=== PATIENT | female | born 1940 | race Caucasian/White ===

== ENCOUNTER 2024-06-10 11:38 | Inpatient (IN) | payer MEDICARE ==
[~2024-06-10] VITALS: Ht 167.6 cm; Wt 147.0 kg
[2024-06-10] MEDS ORDERED: ONDANSETRON HCL/PF 4 MG/2 ML VIAL ONE (11:45)
[2024-06-10] MEDS ORDERED: MORPHINE SULFATE INJ 4 MG/ML DISP.SYRIN ONE (11:45)
[2024-06-10] MEDS: ONDANSETRON 4 MG TAB.RAPDIS PO ONE (11:48)
[2024-06-10] MEDS: MORPHINE SULFATE INJ 2 MG/ML DISP.SYRIN IM ONE (11:50)
[2024-06-10] MEDS ORDERED: ASPI-1169 PO (12:08)
[2024-06-10] MEDS ORDERED: VALS320T2 PO (12:08)
[2024-06-10] MEDS ORDERED: ESCI20TA PO (12:08)
[2024-06-10] MEDS ORDERED: LEVO137T24 PO (12:08)
[2024-06-10] MEDS ORDERED: NAPR-1009 PO (12:08)
[2024-06-10] MEDS ORDERED: FURO-145 PO (12:08)
[2024-06-10] MEDS ORDERED: SIMV40TA2 PO (12:08)
[2024-06-10] MEDS ORDERED: OXYB10TA30 PO (12:08)
[2024-06-10] MEDS ORDERED: LOSA100T31 PO (12:08)
[2024-06-10 13:17] LABS: CALCIUM, SERUM 8.9 mg/dL (8.5-10.1); CARBON DIOXIDE 28 mmol/L (21-32); CHLORIDE 94 mmol/L (98-107); CREATININE 0.8 mg/dL (0.6-1.3); GLUCOSE 128 mg/dL (74-106); POTASSIUM 4.7 mmol/L (3.5-5.1); SODIUM SERUM 128 mmol/L (136-145); UREA NITROGEN, BLOOD 9 mg/dL (7-18)
[2024-06-10 13:22] LABS: INR 1.04 (0.91-1.10); PARTIAL THROMBOPLASTIN TIME 28.6 SEC (24.3-34.3)
[2024-06-10 13:46] LABS: BASOPHILS # (AUTO) 0.1 K/uL (0.0-0.2); BASOPHILS % (AUTO) 0.6 % (0.0-2.0); EOSINOPHILS # (AUTO) 0.1 K/uL (0.0-0.7); EOSINOPHILS % (AUTO) 0.5 % (0.0-6.0); HEMATOCRIT 44 % (33-45); HEMOGLOBIN 14.7 g/dL (11.5-14.8); LYMPHOCYTES # (AUTO) 1.1 K/uL (0.8-4.8); LYMPHOCYTES % (AUTO) 9.9 % (20.0-44.0); MEAN CORPUSCULAR HEMOGLOBIN 33 PG (26.0-33.0); MEAN CORPUSCULAR HGB CONC 34 g/dl (31.0-36.0); MEAN CORPUSCULAR VOLUME 97 fL (82-100); MONOCYTES # (AUTO) 1.4 K/uL (0.1-1.30); MONOCYTES % (AUTO) 12.4 % (2.0-12.0); NEUTROPHILS # (AUTO) 8.4 K/uL (1.8-8.9); NEUTROPHILS % (AUTO) 76.6 % (43.0-81.0); PLATELET COUNT (AUTO) 272 K/uL (150-450); RED BLOOD CELL COUNT(AUTO) 4.48 MIL/uL (4.0-5.2); RED CELL DISTRIBUTION WIDTH 13.7 % (11.5-15.0)
[2024-06-10] MEDS ORDERED: ONDANSETRON HCL/PF 4 MG/2 ML VIAL IVP PRN (14:00)
[2024-06-10] MEDS ORDERED: MAG HYDROX/AL HYDROX/SIMETH 30 ML UDC PO PRN (14:00)
[2024-06-10] MEDS ORDERED: Z GUARD REMEDY 4 OZ OINT TP PRN (14:00)
[2024-06-10] MEDS ORDERED: MAGNESIUM HYDROXIDE 30 ML UDC PO PRN (14:00)
[2024-06-10] MEDS ORDERED: ACETAMINOPHEN 325 MG TABLET PO PRN (14:00)
[2024-06-10 16:00] VITALS: BP 120/56; TEMP 98.2; O2SAT 95
[2024-06-10] MEDS: IV NS 0.9% 1,000 ML IV PRN (16:04)
[2024-06-10] MEDS: HYDROCODONE/APAP 10/325MG TABLET PO PRN (16:23)
[2024-06-10 19:09] VITALS: BP 120/56; TEMP 98.2; O2SAT 95
[2024-06-10 20:00] VITALS: BP 100/65; TEMP 97.9; O2SAT 96
[2024-06-10 20:28] VITALS: O2SAT 96
[2024-06-10] MEDS: ENOXAPARIN SODIUM 40 MG/0.4 ML DISP.SYRIN SQ SCH (20:37)
[2024-06-11] VITALS: BP 101/46; TEMP 98.1; O2SAT 95
[2024-06-11 04:00] VITALS: BP 104/50; TEMP 98.2; O2SAT 97
[2024-06-11 06:33] LABS: CALCIUM, SERUM 8.6 mg/dL (8.5-10.1); CREATININE 1.4 mg/dL (0.6-1.3); MAGNESIUM 1.9 mg/dL (1.8-2.4); PHOSPHORUS 3.4 mg/dL (2.5-4.9); POTASSIUM 4.7 mmol/L (3.5-5.1)
[2024-06-11 06:50] LABS: BASOPHILS # (AUTO) 0.1 K/uL (0.0-0.2); BASOPHILS % (AUTO) 0.8 % (0.0-2.0); EOSINOPHILS # (AUTO) 0.1 K/uL (0.0-0.7); EOSINOPHILS % (AUTO) 1.2 % (0.0-6.0); HEMATOCRIT 39 % (33-45); HEMOGLOBIN 13.2 g/dL (11.5-14.8); LYMPHOCYTES # (AUTO) 1.5 K/uL (0.8-4.8); LYMPHOCYTES % (AUTO) 19.8 % (20.0-44.0); MEAN CORPUSCULAR HEMOGLOBIN 33 PG (26.0-33.0); MEAN CORPUSCULAR HGB CONC 34 g/dl (31.0-36.0); MEAN CORPUSCULAR VOLUME 98 fL (82-100); MONOCYTES # (AUTO) 0.9 K/uL (0.1-1.30); MONOCYTES % (AUTO) 12.2 % (2.0-12.0); NEUTROPHILS # (AUTO) 5.1 K/uL (1.8-8.9); PLATELET COUNT (AUTO) 232 K/uL (150-450); RED BLOOD CELL COUNT(AUTO) 3.98 MIL/uL (4.0-5.2); RED CELL DISTRIBUTION WIDTH 13.9 % (11.5-15.0); WHITE BLOOD COUNT (AUTO) 7.7 K/uL (4.3-11.0)
[2024-06-11] MEDS: PANTOPRAZOLE 40 MG TABLET.DR PO SCH (07:53)
[2024-06-11 08:00] VITALS: BP 75/38; TEMP 98.2; O2SAT 92
[2024-06-11 12:00] VITALS: BP 99/48; TEMP 98.2; O2SAT 91
[2024-06-11] MEDS ORDERED: POLYVINYL ALCOHOL 15 ML BOTTLE EACHEYE PRN (15:00)
[2024-06-11 16:00] VITALS: BP 112/54; TEMP 98.2; O2SAT 97
[2024-06-11] MEDS: HYDROCODONE/APAP 5/325MG TABLET PO PRN (19:33)
[2024-06-11 20:00] VITALS: BP 107/58; TEMP 97.7; O2SAT 96
[2024-06-12] VITALS (7 sets, daily range): BP systolic 98–130; BP diastolic 42–80; TEMP 97.5–98.1; O2SAT 93–98
[2024-06-12 08:25] LABS: BASOPHILS % (AUTO) 0.7 % (0.0-2.0); EOSINOPHILS # (AUTO) 0.2 K/uL (0.0-0.7); EOSINOPHILS % (AUTO) 2.4 % (0.0-6.0); HEMATOCRIT 41 % (33-45); LYMPHOCYTES # (AUTO) 1.5 K/uL (0.8-4.8); LYMPHOCYTES % (AUTO) 23.9 % (20.0-44.0); MEAN CORPUSCULAR HEMOGLOBIN 34 PG (26.0-33.0); MEAN CORPUSCULAR HGB CONC 34 g/dl (31.0-36.0); MEAN CORPUSCULAR VOLUME 100 fL (82-100); MONOCYTES # (AUTO) 0.5 K/uL (0.1-1.30); MONOCYTES % (AUTO) 8.6 % (2.0-12.0); NEUTROPHILS # (AUTO) 4.1 K/uL (1.8-8.9); NEUTROPHILS % (AUTO) 64.4 % (43.0-81.0); PLATELET COUNT (AUTO) 210 K/uL (150-450); RED BLOOD CELL COUNT(AUTO) 4.12 MIL/uL (4.0-5.2); WHITE BLOOD COUNT (AUTO) 6.3 K/uL (4.3-11.0)
[2024-06-12 08:48] LABS: ALBUMIN 2.9 g/dL (3.4-5.0); BILIRUBIN,TOTAL 0.8 mg/dL (0.2-1.0); CALCIUM, SERUM 8.9 mg/dL (8.5-10.1); CREATININE 1.3 mg/dL (0.6-1.3); MAGNESIUM 2.3 mg/dL (1.8-2.4); PHOSPHORUS 3.3 mg/dL (2.5-4.9); POTASSIUM 5.4 mmol/L (3.5-5.1); TOTAL PROTEIN, SERUM 6.8 g/dL (6.4-8.2)
[2024-06-12 09:14] LABS: THYROID STIMULATING HORMONE 16.11 uIU/mL (0.358-3.74); URIC ACID 7.1 mg/dL (2.6-7.2)
[2024-06-12] MEDS: SODIUM ZIRCONIUM CYCLOSILICATE 10 GM POWD.PACK PO ONE (10:39)
[2024-06-12] MEDS ORDERED: SODIUM POLYSTYRENE SULFONATE 15 G/60 ML BOTTLE PO ONE (12:00)
[2024-06-12 15:42] LABS: CALCIUM, SERUM 8.6 mg/dL (8.5-10.1); CREATININE 1.1 mg/dL (0.6-1.3); POTASSIUM 4.6 mmol/L (3.5-5.1)
[2024-06-13] VITALS: BP 127/81; TEMP 97.7; O2SAT 94
[2024-06-13 04:00] VITALS: BP 124/62; TEMP 98.1; O2SAT 96
[2024-06-13] MEDS: IV NS 0.9% 1,000 ML IV PRN (04:14)
[2024-06-13 07:30] VITALS: BP 135/95; TEMP 97.7; O2SAT 91
[2024-06-13] MEDS ORDERED: ENOX40DI SQ (10:52)
[2024-06-13] MEDS ORDERED: INFLUENZA VACCINE 2023-24 0.5 ML DISP.SYRIN IM ONE (12:00)
[2024-06-13] MEDS ORDERED: PNEUMOCOCCAL 23-VAL P-SAC VAC 0.5 ML VIAL SQ ONE (12:00)
[2024-06-13 16:00] VITALS: BP 150/70; TEMP 98.1; O2SAT 96
[2024-06-14 06:06] LABS: *SPE A/G RATIO 0.9 (0.7-1.7); *SPE ALPHA-1-GLOBULIN 0.3 g/dL (0.0-0.4); *SPE BETA GLOBULIN 1.1 g/dL (0.7-1.3); *SPE GLOBULIN, TOTAL 3.4 g/dL (2.2-3.9); *SPE M-SPIKE Not Observed g/dL (Not Observed); *SPE PROTEIN TOTAL 6.4 g/dL (6.0-8.5)
[2024-06-14 08:00] VITALS: BP 154/85; TEMP 97.3; O2SAT 91
== END 2024-06-14 13:00 | DRG 563 ==
LOC: ER 11:52 → TELE 14:45
PROVIDERS: ATTEND Internal Medicine
DX: S82.51XA Displaced fracture of medial malleolus of right tibia, initial encounter for closed fracture (principal); I50.32 Chronic diastolic (congestive) heart failure; E87.1 Hypo-osmolality and hyponatremia; Z68.43 Body mass index [BMI] 50.0-59.9, adult; N17.9 Acute kidney failure, unspecified; W01.0XXA Fall on same level from slipping, tripping and stumbling without subsequent striking against object, initial encounter; I11.0 Hypertensive heart disease with heart failure; E66.01 Morbid (severe) obesity due to excess calories; Z20.822 Contact with and (suspected) exposure to COVID-19; F03.90 Unspecified dementia, unspecified severity, without behavioral disturbance, psychotic disturbance, mood disturbance, and anxiety; Z79.890 Hormone replacement therapy; M89.8X9 Other specified disorders of bone, unspecified site; Z79.82 Long term (current) use of aspirin; Z79.899 Other long term (current) drug therapy; S82.831A Other fracture of upper and lower end of right fibula, initial encounter for closed fracture; E78.5 Hyperlipidemia, unspecified; E03.9 Hypothyroidism, unspecified; Y92.091 Bathroom in other non-institutional residence as the place of occurrence of the external cause; E87.5 Hyperkalemia
CPT/HCPCS: 36415; 70450-TC; 71045-TC; 73590-TC; 73600-TC; 76770-TC; 80048-TC; 80053-TC; 82550-TC; 83735-TC; 83970; 84100-TC; 84155; 84165; 84443-TC; 84484-TC; 84550-TC; 85025-TC; 85730-TC; 87081-TC; 93307-TC; 97110-TC; 97112-TC; 97530-TC; A4223; G0378; J1650; J2270; J2405; J7030

== ENCOUNTER 2024-07-26 05:48 | Day surgery (SDC) | payer MEDICARE, BC ==
[~2024-07-26 05:48] MED LIST: ASPI-1169 PO; ENOX40DI SQ; ESCI20TA PO; FURO-145 PO; LEVO137T24 PO; LOSA100T31 PO; NAPR-1009 PO; OXYB10TA30 PO; SIMV40TA2 PO; VALS320T2 PO
[2024-07-26] MEDS ORDERED: POLYMYXIN B SULFATE 500,000 UNITS ONE (07:14)
[2024-07-26] MEDS ORDERED: ANESTHESIA TRAY IN PYXIS 1 EA TRAY MC ONE (07:15)
[2024-07-26] MEDS ORDERED: BUPIVACAINE 0.5 % PF 150 MG/30 ML VIAL ONE (07:15)
[2024-07-26] MEDS ORDERED: FENTANYL PF 250MCG/5ML AMPUL ONE (07:28)
[2024-07-26] MEDS ORDERED: ROCURONIUM BROMIDE 50 MG/5 ML ONE (07:28)
[2024-07-26] MEDS ORDERED: LABETALOL HCL IV 100MG VIAL ONE (08:12)
[2024-07-26] MEDS ORDERED: TRANEXAMIC ACID 1,000 MG/10 ML VIAL ONE (08:14)
[2024-07-26] MEDS ORDERED: ONDANSETRON HCL/PF 4 MG/2 ML VIAL IVP PRN (10:00)
[2024-07-26] MEDS ORDERED: MEPERIDINE HCL/PF 50 MG/ML DISP.SYRIN IV PRN (10:00)
[2024-07-26] MEDS ORDERED: MORPHINE SULFATE INJ 10 MG/ML DISP.SYRIN IV PRN (10:00)
[2024-07-26] MEDS ORDERED: CEFAZOLIN 2 GM in IV D5W 100 ML IV SCH (16:00)
[2024-07-27] MEDS ORDERED: CEFAZOLIN 2 GM in IV D5W 100 ML IV SCH (07:30)
[2024-07-27] MEDS ORDERED: ENOXAPARIN SODIUM 40 MG/0.4 ML DISP.SYRIN SQ SCH (08:00)
== END 2024-07-26 12:00 ==
LOC: DS 05:48
PROVIDERS: ATTEND Student in an Organized Health Care Education/Training Program
DX: S82.841A Displaced bimalleolar fracture of right lower leg, initial encounter for closed fracture (principal); I10 Essential (primary) hypertension; J44.9 Chronic obstructive pulmonary disease, unspecified; G47.33 Obstructive sleep apnea (adult) (pediatric); E66.01 Morbid (severe) obesity due to excess calories; Z68.43 Body mass index [BMI] 50.0-59.9, adult; Z87.891 Personal history of nicotine dependence; Z85.828 Personal history of other malignant neoplasm of skin; Z79.899 Other long term (current) drug therapy; Z90.710 Acquired absence of both cervix and uterus; Z98.890 Other specified postprocedural states; X58.XXXA Exposure to other specified factors, initial encounter; Y93.89 Activity, other specified; Y92.89 Other specified places as the place of occurrence of the external cause; Y99.8 Other external cause status
CPT/HCPCS: 27814; 73600; A6402; C1713; C1769; J0330; J0360; J0690; J1100; J2405; J2704; J3010; J3490; J7030; J7060

== ENCOUNTER 2024-12-15 16:28 | Inpatient (IN) | payer MEDICARE, BC ==
[~2024-12-15] VITALS: Ht 162.6 cm; Wt 126.2 kg
[2024-12-15 17:13] LABS: PLATELET COUNT (AUTO) 270 K/uL (150-450); RED BLOOD CELL COUNT(AUTO) 5.23 MIL/uL (4.0-5.2); RED CELL DISTRIBUTION WIDTH 15.1 % (11.5-15.0); WHITE BLOOD COUNT (AUTO) 10.0 K/uL (4.3-11.0)
[2024-12-15 17:14] LABS: ABG BASE EXCESS 4.8 mmol/L (-2.0-3.0); ABG OXYGEN SATURATION 96.4 % (94.0-98.0); ABG PCO2 45.4 mmHg (32.0-45.0); ABG PH 7.436 (7.350-7.450); ABG PO2 90.7 mmHg (83.0-108.0); ABG TOTAL HEMOGLOBIN 14.8 G/dL (12.0-16.0); FLOW, BLOOD GAS 6.00 L/min (0.00-30.00); FRACTIONATED INSPIRED OXYGEN 44.0 %; SITE, ABG RIGHT RADIAL
[2024-12-15 17:18] VITALS: O2SAT 98
[2024-12-15] MEDS: IPRATROPIUM NEB FS 0.5 MG/2.5 ML AMPUL.NEB NEB ONE (17:18)
[2024-12-15] MEDS: ALBUTEROL FS 2.5 MG/3 ML VIAL.NEB NEB ONE (17:18)
[2024-12-15] MEDS ORDERED: IPRATROPIUM NEB FS 0.5 MG/2.5 ML AMPUL.NEB ONE (17:22)
[2024-12-15] MEDS ORDERED: ALBUTEROL FS 2.5 MG/3 ML VIAL.NEB ONE (17:22)
[2024-12-15 17:25] LABS: CALCIUM, SERUM 9.4 mg/dL (8.5-10.1); CREATININE 0.5 mg/dL (0.6-1.3); SODIUM SERUM 144.0 mmol/L (136-145); UREA NITROGEN, BLOOD 5.0 mg/dL (7-18)
[2024-12-15 17:30] LABS: ASPARTATE AMINOTRANSFERASE 12.0 U/L (15-37); TOTAL PROTEIN, SERUM 6.9 g/dL (6.4-8.2)
[2024-12-15 17:33] VITALS: O2SAT 99
[2024-12-15 17:33] LABS: LACTIC ACID 1.1 mmol/L (0.4-2.0)
[2024-12-15 18:19] LABS: INR 0.88 (0.91-1.10)
[2024-12-15] MEDS: POTASSIUM CHLORIDE 20 MEQ TAB.PRT.SR PO ONE (18:30)
[2024-12-15] MEDS ORDERED: POTASSIUM CHLORIDE 20 MEQ TAB.PRT.SR PO ONE (18:43)
[2024-12-15 18:46] LABS: APPEARANCE,URINE CLEAR (CLEAR); BLOOD, URINE NEGATIVE Ery/uL (NEGATIVE); LEUKOCYTE ESTERASE ,URINE NEGATIVE (NEGATIVE); NITRITE, URINE NEGATIVE (NEGATIVE); UGLUCOSE NEGATIVE (NEGATIVE)
[2024-12-15] MEDS ORDERED: ONDANSETRON HCL/PF 4 MG/2 ML VIAL IVP PRN (21:00)
[2024-12-15] MEDS ORDERED: ACETAMINOPHEN 325 MG TABLET PO PRN (21:00)
[2024-12-15] MEDS ORDERED: MAGNESIUM HYDROXIDE 30 ML UDC PO PRN (21:00)
[2024-12-15] MEDS ORDERED: MAG HYDROX/AL HYDROX/SIMETH 30 ML UDC PO PRN (21:00)
[2024-12-15] MEDS ORDERED: Z GUARD REMEDY 4 OZ OINT TP PRN (21:00)
[2024-12-15] MEDS ORDERED: ENOXAPARIN SODIUM 150 MG/ML DISP.SYRIN SQ SCH (21:30)
[2024-12-15 22:30] VITALS: BP 157/81; TEMP 97.9; O2SAT 95
[2024-12-15 22:34] VITALS: BP 157/81; TEMP 97.9; O2SAT 95
[2024-12-15] MEDS: ENOXAPARIN SODIUM 120 MG/0.8 ML DISP.SYRIN SQ SCH (22:47)
[2024-12-15] MEDS: ENOXAPARIN SODIUM 60 MG/0.6 ML DISP.SYRIN SQ ONE (22:48)
[2024-12-15] MEDS: FUROSEMIDE 20 MG/2 ML VIAL IV ONE (23:33)
[2024-12-16] VITALS (8 sets, daily range): BP systolic 105–157; BP diastolic 55–84; TEMP 97.2–98.4; O2SAT 94–98
[2024-12-16 04:01] LABS: PLATELET COUNT (AUTO) 268 K/uL (150-450); RED BLOOD CELL COUNT(AUTO) 5.31 MIL/uL (4.0-5.2); RED CELL DISTRIBUTION WIDTH 15.1 % (11.5-15.0); WHITE BLOOD COUNT (AUTO) 12.0 K/uL (4.3-11.0)
[2024-12-16 04:52] LABS: ABG BASE EXCESS 4.3 mmol/L (-2.0-3.0); ABG OXYGEN SATURATION 91.2 % (94.0-98.0); ABG PCO2 39.3 mmHg (32.0-45.0); ABG PH 7.473 (7.350-7.450); ABG PO2 62.0 mmHg (83.0-108.0); ABG TOTAL HEMOGLOBIN 15.3 G/dL (12.0-16.0); FLOW, BLOOD GAS 4.00 L/min (0.00-30.00); FRACTIONATED INSPIRED OXYGEN 36.0 %; SITE, ABG RIGHT RADIAL
[2024-12-16 07:10] LABS: CREATININE 0.6 mg/dL (0.6-1.3); PHOSPHORUS 3.7 mg/dL (2.5-4.9); SODIUM SERUM 140.0 mmol/L (136-145); UREA NITROGEN, BLOOD 7.0 mg/dL (7-18)
[2024-12-16 07:18] LABS: CALCIUM, SERUM 9.3 mg/dL (8.5-10.1)
[2024-12-16] MEDS ORDERED: NYST30CR3 TP (08:06)
[2024-12-16] MEDS ORDERED: ONDA-97 PO (08:06)
[2024-12-16] MEDS ORDERED: LEVO200T8 PO (08:06)
[2024-12-16] MEDS: LEVOTHYROXINE SODIUM 137 MCG TABLET PO SCH (08:14)
[2024-12-16] MEDS: ESCITALOPRAM OXALATE (10 MG) 10 MG TABLET PO SCH (08:14)
[2024-12-16] MEDS: PANTOPRAZOLE 40 MG TABLET.DR PO SCH (08:14)
[2024-12-16] MEDS: OXYBUTYNIN CHLORIDE ER 5 MG TAB PO SCH (08:14)
[2024-12-16] MEDS: LOSARTAN POTASSIUM 50 MG TABLET PO SCH (08:14)
[2024-12-16] MEDS: FUROSEMIDE 20 MG TABLET PO SCH (08:14)
[2024-12-16] MEDS: POTASSIUM CHLORIDE 10 MEQ TABLET.SA PO ONE (10:35)
[2024-12-16] MEDS: FUROSEMIDE 20 MG/2 ML VIAL IV SCH (16:19)
[2024-12-17] VITALS (8 sets, daily range): BP systolic 99–164; BP diastolic 54–76; TEMP 97.5–97.9; O2SAT 94–100
[2024-12-17] MEDS: LEVOTHYROXINE SODIUM 100 MCG TABLET PO SCH (07:36)
[2024-12-17 07:38] LABS: PLATELET COUNT (AUTO) 263 K/uL (150-450); RED BLOOD CELL COUNT(AUTO) 4.72 MIL/uL (4.0-5.2); RED CELL DISTRIBUTION WIDTH 14.9 % (11.5-15.0); WHITE BLOOD COUNT (AUTO) 12.9 K/uL (4.3-11.0)
[2024-12-17 07:57] LABS: CALCIUM, SERUM 9.3 mg/dL (8.5-10.1); CREATININE 0.6 mg/dL (0.6-1.3); SODIUM SERUM 144.0 mmol/L (136-145); UREA NITROGEN, BLOOD 15.0 mg/dL (7-18)
[2024-12-17] MEDS: SIMVASTATIN 20 MG TABLET PO SCH (08:19)
[2024-12-17] MEDS: LOSARTAN POTASSIUM 50 MG TABLET PO SCH (08:19)
[2024-12-17] MEDS: ESCITALOPRAM OXALATE (10 MG) 10 MG TABLET PO SCH (08:19)
[2024-12-17] MEDS: POTASSIUM CHLORIDE 20 MEQ TAB.PRT.SR PO ONE (10:01)
[2024-12-17] MEDS: MUPIROCIN OINT 2% 22 GM TUBE NS SCH (16:30)
[2024-12-17] MEDS: FUROSEMIDE 20 MG TABLET PO SCH (16:30)
[2024-12-18] VITALS: BP 136/64; TEMP 98.2; O2SAT 96
[2024-12-18 04:00] VITALS: BP 127/65; TEMP 97.7; O2SAT 96
[2024-12-18 07:10] LABS: PLATELET COUNT (AUTO) 126 K/uL (150-450); RED BLOOD CELL COUNT(AUTO) 4.73 MIL/uL (4.0-5.2); RED CELL DISTRIBUTION WIDTH 15.6 % (11.5-15.0); WHITE BLOOD COUNT (AUTO) 7.9 K/uL (4.3-11.0)
[2024-12-18 08:10] VITALS: BP 109/54; TEMP 97.4; O2SAT 95
[2024-12-18 09:17] LABS: CALCIUM, SERUM 9.2 mg/dL (8.5-10.1); CREATININE 0.7 mg/dL (0.6-1.3); SODIUM SERUM 142.0 mmol/L (136-145); UREA NITROGEN, BLOOD 13.0 mg/dL (7-18)
[2024-12-18 12:00] VITALS: BP 146/65; TEMP 97.2; O2SAT 97
[2024-12-18 16:00] VITALS: BP 112/66; TEMP 97.7; O2SAT 95
[2024-12-18] MEDS: CLOTRIMAZOLE 1% 15 GM TUBE TP SCH (16:32)
== END 2024-12-18 17:24 | DRG 291 ==
LOC: ER 16:30 → TELE1 20:28
PROVIDERS: ADMIT Registered Nurse Psychiatric/Mental Health; ATTEND Internal Medicine
DX: I11.0 Hypertensive heart disease with heart failure (principal); I50.33 Acute on chronic diastolic (congestive) heart failure; J96.21 Acute and chronic respiratory failure with hypoxia; G93.40 Encephalopathy, unspecified; E44.1 Mild protein-calorie malnutrition; E87.3 Alkalosis; Z68.41 Body mass index [BMI] 40.0-44.9, adult; E78.5 Hyperlipidemia, unspecified; E66.01 Morbid (severe) obesity due to excess calories; E03.9 Hypothyroidism, unspecified; Z66 Do not resuscitate; N32.81 Overactive bladder; E88.09 Other disorders of plasma-protein metabolism, not elsewhere classified; F03.90 Unspecified dementia, unspecified severity, without behavioral disturbance, psychotic disturbance, mood disturbance, and anxiety; K21.9 Gastro-esophageal reflux disease without esophagitis; Z87.81 Personal history of (healed) traumatic fracture; Z79.01 Long term (current) use of anticoagulants; Z79.890 Hormone replacement therapy; Z79.82 Long term (current) use of aspirin; Z79.899 Other long term (current) drug therapy; I67.2 Cerebral atherosclerosis; E87.6 Hypokalemia; F09 Unspecified mental disorder due to known physiological condition
CPT/HCPCS: 36415; 36600; 71045-TC; 71250-TC; 80048-TC; 80076-TC; 82803-TC; 83605-TC; 83735-TC; 83880; 84100-TC; 84484-TC; 85025-TC; 85730-TC; 87040-TC; 87081-TC; 87086-TC; 93307-TC; 93970-TC; 94799-TC; G0378; J1650; J1938; J2919